=== PATIENT | female | born 1955 | race Caucasian/White ===

== ENCOUNTER 2018-05-21 11:54 | Emergency (ER) | payer MEDICARE, BC ==
[~2018-05-21 11:54] MED LIST: ISOVUE-370 76%-LOCM 1 ML ONE
[2018-05-21] MEDS ORDERED: Ondansetron ODT 8 MG TAB ONE (12:18)
[2018-05-21 12:25] LABS: #Eosinphils 0.2 thou/uL (0.0-0.7); #Monocytes 0.9 thou/uL (0.11-0.59); #Neutrophils 11.4 thou/uL (1.40-6.50); %Basophils 0.1 % (0.0-1.0); %Eosinophils 1.3 % (0.0-10.0); %Lymphocytes 13.6 % (21.0-51.0); %Monocytes 6.3 % (0.0-10.0); %Neutrophils 78.7 % (42.0-75.0); Hemoglobin 13.3 g/dL (12.0-16.0); Mean Corpuscular HGB CONC 32.5 g/dL (32.0-36.0); Mean Corpuscular Hemoglobin 27.2 pg (27.0-31.0); Mean Corpuscular Volume 83.9 fL (78.0-98.0); Mean Platelet Volume 7.1 fL (7.4-10.4); Platelet Count 274 thou/uL (130-400); RBC Distribution Width 12.9 % (11.5-14.5); Red Blood Cell (RBC) Count 4.89 mill/uL (4.20-5.40); White Blood Cell (WBC) Count 14.5 thou/uL (4.8-10.8)
[2018-05-21 12:49] LABS: ALT (SGPT) 14 U/L (8-55); AST (SGOT) 12 U/L (5-34); Albumin 4.2 g/dL (3.4-4.8); Alkaline Phosphatase 82 U/L (40-150); Anion Gap 15 mmol/L (10-20); BUN (Urea Nitrogen) 14 mg/dL (9.8-20.1); Bilirubin, Total 0.7 mg/dL (0.2-1.2); Calc. Creatinine Clearance 0 mL/min (70-130); Calcium 10.1 mg/dL (7.8-10.44); Carbon Dioxide 25 mmol/L (23-31); Chloride 102 mmol/L (98-107); Estimated GFR-MDRD 86; Globulin 3.1 g/dL (2.4-3.5); Glucose 106 mg/dL (80-115); Lipase 29 U/L (8-78); Potassium 3.6 mmol/L (3.5-5.1); Protein, Total 7.3 g/dL (6.0-8.3); Sodium 138 mmol/L (136-145)
[2018-05-21 13:32] LABS: Bilirubin Negative (Negative); Blood, Urine Trace (Negative); Clarity CLEAR (Clear); Glucose, Urine (Dipstick) Negative (Negative); Leukocyte Negative (Negative); Nitrite Negative (Negative); Protein, Urine (Dipstick) Negative (Neg-Trace); Urobilinogen 0.2 mg/dL (0.2-1.0)
[2018-05-21 13:37] LABS: Bacteria/HPF None Seen HPF (None Seen); Hyaline Casts/LPF 0-3 HYALINE CAST LPF (0-3 Hyaline); Pathc Cast-AUWi Flag 0.14 (0-2.49); RBC/HPF 0-3 HPF (0-3); Squamous Epithelial 0-3 HPF (0-3); WBC/HPF 0-3 HPF (0-3)
[2018-05-21] MEDS ORDERED: metroNIDAZOLE 250 MG TAB ONE (14:00)
--- NOTE | 2018-05-21 14:07 | CT ---
CT ABDOMEN AND PELVIS WITH IV CONTRAST: HISTORY: Left lower quadrant pain. FINDINGS: Lung bases are clear. Lobular cysts are apparent within the left liver lobe. Spleen, kidneys, adren al glands, and pancreas are within normal limits. Scattered nonspecific lymph nodes. Urinary bladde r is decompressed. Calcifications in the uterus have the appearance of fibroids. Degenerative finn es lumbar spine. Lack of oral contrast limits evaluation of the bowel. No evidence of obstruction. Scattered diverti cula arise from the colon. There is subtle circumferential wall thickening involving the upper sigmo id colon with stranding in the adjacent fat in the region of diverticula. No extraluminal fluid jessy ection are apparent, with a small amount of fluid noted at the left adnexa. The stranding from the b owel also involves the left adnexa, including the fallopian tube. IMPRESSION: 1. Left lower quadrant inflammation involves both the thickened sigmoid colon and the left adnexa. Noncomplicated diverticulitis is the favored etiology, rather than pelvic inflammatory disease. 2. Atherosclerosis. 3. Calcified uterine fibroids. POS: [facility]
== END 2018-05-21 14:11 | disposition home or self-care (01) ==
LOC: ERS 11:54
DX: K57.32 Diverticulitis of large intestine without perforation or abscess without bleeding (principal); E03.9 Hypothyroidism, unspecified; I10 Essential (primary) hypertension; Z79.899 Other long term (current) drug therapy
CPT/HCPCS: 74177; 80053; 81003; 81015; 83690; 85025; 93005; 96361; 96374; J2270

== ENCOUNTER 2018-10-14 19:30 | Outpatient (CLI) | payer MEDICARE, BC | END 2018-10-14 19:31 | disposition home or self-care (01) | LOC: SLEEPLAB 19:30 | DX: G47.33 Obstructive sleep apnea (adult) (pediatric) (principal); R53.83 Other fatigue; I10 Essential (primary) hypertension; E66.9 Obesity, unspecified; Z68.36 Body mass index [BMI] 36.0-36.9, adult | CPT/HCPCS: 95811 ==

== ENCOUNTER 2019-02-27 10:12 | Emergency (ER) | payer MEDICARE, BC ==
[2019-02-27 11:09] LABS: #Eosinphils 0.2 thou/uL (0.0-0.7); #Lymphocytes 2.3 thou/uL (1.20-3.40); #Monocytes 0.8 thou/uL (0.11-0.59); #Neutrophils 5.8 thou/uL (1.40-6.50); %Basophils 0.1 % (0.0-1.0); %Eosinophils 2.6 % (0.0-10.0); %Lymphocytes 25.4 % (21.0-51.0); %Monocytes 8.4 % (0.0-10.0); %Neutrophils 63.6 % (42.0-75.0); Hemoglobin 12.2 g/dL (12.0-16.0); Mean Corpuscular HGB CONC 31.7 g/dL (32.0-36.0); Mean Corpuscular Hemoglobin 26.7 pg (27.0-31.0); Mean Corpuscular Volume 84.2 fL (78.0-98.0); Mean Platelet Volume 7.6 fL (7.4-10.4); Platelet Count 255 thou/uL (130-400); RBC Distribution Width 12.8 % (11.5-14.5); Red Blood Cell (RBC) Count 4.56 mill/uL (4.20-5.40); White Blood Cell (WBC) Count 9.2 thou/uL (4.8-10.8)
[2019-02-27 11:35] LABS: ALT (SGPT) 17 U/L (8-55); AST (SGOT) 13 U/L (5-34); Albumin 4.1 g/dL (3.4-4.8); Alkaline Phosphatase 92 U/L (40-150); Anion Gap 15 mmol/L (10-20); BUN (Urea Nitrogen) 14 mg/dL (9.8-20.1); Bilirubin, Total 0.6 mg/dL (0.2-1.2); Calc. Creatinine Clearance 0 mL/min (70-130); Calcium 9.4 mg/dL (7.8-10.44); Carbon Dioxide 24 mmol/L (23-31); Chloride 106 mmol/L (98-107); Estimated GFR-MDRD 76; Globulin 2.7 g/dL (2.4-3.5); Glucose 87 mg/dL (80-115); Lipase 31 U/L (8-78); Potassium 3.9 mmol/L (3.5-5.1); Protein, Total 6.8 g/dL (6.0-8.3); Sodium 141 mmol/L (136-145)
[2019-02-27 12:01] LABS: Bilirubin Negative (Negative); Blood, Urine Negative (Negative); Clarity CLEAR (Clear); Glucose, Urine (Dipstick) Negative (Negative); Leukocyte Negative (Negative); Nitrite Negative (Negative); Protein, Urine (Dipstick) Negative (Neg-Trace); Specific Gravity, Urine 1.007 (1.002-1.036); Urobilinogen 0.2 mg/dL (0.2-1.0)
--- NOTE | 2019-02-27 12:13 | CT ---
CT of abdomen and pelvis: 02/27/2019 COMPARISON: 05/21/2018 HISTORY: Left lower quadrant pain TECHNIQUE: Axial CT imaging obtained at 5 mm intervals from the lung bases through the pubic symphysi s with IV contrast. Coronal reformatted imaging obtained. FINDINGS: The imaged lung bases are unremarkable. No free intraperitoneal air. There is a stable cyst within the anterior aspect of the left lobe of the liver measuring 4.9 cm. A s econd smaller hypodense stable lesion suggesting an additional cyst noted in the anterior aspect of t he left lobe of liver measuring 1.2 cm. The spleen, gallbladder, pancreas, adrenal glands, and kidneys are unremarkable. There is multifocal diverticulosis of the descending colon and the sigmoid colon. There is a focal ar ea of pericolonic inflammatory change involving the sigmoid colon with associated colonic wall thicke jordan, evidence of acute sigmoid diverticulitis. This involves a segment of the sigmoid colon within t he left lower quadrant measuring approximately 5 cm in length. No associated abscess. There is a suture line at the level of the cecal tip suggesting prior appendectomy. There is a small sliding-type bowel hernia. There is scattered atherosclerotic calcification of the a bdominal aorta and its branches. No lymphadenopathy is seen in the pelvis, mesentery, or retroperiton eum. Calcified lesion within the uterus noted, evidence of stable uterine fibroid. Review of the osseous structures demonstrates no worrisome lytic or blastic lesion. Multilevel lower lumbar spine facet hypertrophic change seen. IMPRESSION: Findings most consistent with sigmoid diverticulitis. These findings are similar when com pared to the 05/21/2018 examination. Recommend direct visualization following treatment to exclude an u nderlying lesion within the colon.
== END 2019-02-27 12:26 | disposition home or self-care (01) ==
LOC: ERS 10:12
DX: K57.32 Diverticulitis of large intestine without perforation or abscess without bleeding (principal); E03.9 Hypothyroidism, unspecified; I10 Essential (primary) hypertension
CPT/HCPCS: 36415; 74177; 80053; 81003; 83690; 85025

== ENCOUNTER 2019-10-22 12:18 | Outpatient (CLI) | payer MEDICARE, BC ==
--- NOTE | 2019-11-14 09:28 | MMO ---
Bilateral MAMMO Bilat Screen [facility]. CLINICAL HISTORY: Patient is 64 years old and is seen for screening. The patient has the following family history of breast cancer: mother, at age 62. The patient has no personal history of cancer. VIEWS: The views performed were: bilateral craniocaudal with tomosynthesis and bilateral mediolateral oblique with tomosynthesis. FILMS COMPARED: The present examination has been compared to prior imaging studies performed at [facility] on 02/17/2015, 02/22/2016 and 08/30/2018. This study has been interpreted with the assistance of computer-aided detection. MAMMOGRAM FINDINGS: There are scattered fibroglandular densities. There are no suspicious masses, suspicious calcifications, or new areas of architectural distortion. IMPRESSION: THERE IS NO MAMMOGRAPHIC EVIDENCE OF MALIGNANCY. A ROUTINE FOLLOW-UP MAMMOGRAM IN 1 YEAR IS RECOMMENDED. THE RESULTS OF THIS EXAM WERE SENT TO THE PATIENT. ACR BI-RADS Category 1 - Negative MAMMOGRAPHY NOTE: 1. A negative mammogram report should not delay a biopsy if a dominant of clinically suspicious mass is present. 2. Approximately 10% to 15% of breast cancers are not detected by mammography. 3. Adenosis and dense breasts may obscure an underlying neoplasm. Reported by: ANGELA VEGA MD Electonically Signed: [id number]
== END 2019-10-22 12:19 | disposition home or self-care (01) ==
LOC: BICMAMMO 12:18
PROVIDERS: ATTEND Family Medicine
DX: Z12.31 Encounter for screening mammogram for malignant neoplasm of breast (principal); Z80.3 Family history of malignant neoplasm of breast
CPT/HCPCS: 77063; 77067

== ENCOUNTER 2019-12-11 12:13 | Outpatient (CLI) | payer MEDICARE, OTHER ==
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
== END 2019-12-11 12:14 | disposition home or self-care (01) ==
LOC: BICRAD 12:13
PROVIDERS: ATTEND Family Medicine
DX: R20.0 Anesthesia of skin (principal); M47.812 Spondylosis without myelopathy or radiculopathy, cervical region; M43.12 Spondylolisthesis, cervical region
CPT/HCPCS: 36415; 72040; 80053; 80061; 84443; 84550

== ENCOUNTER 2020-01-01 12:48 | Outpatient (CLI) | payer MEDICARE, OTHER ==
--- NOTE | 2020-01-01 15:42 | MRI ---
CERVICAL SPINE MRI WITHOUT CONTRAST: DATE: 01/01/2020. COMPARISON: None. HISTORY: Bilateral hand numbness, neck pain. TECHNIQUE: Multiplanar, multisequence MR imaging of the cervical spine without contrast. FINDINGS: Sagittal STIR imaging demonstrates no focal area of osseous marrow edema. Craniocervical and cervicothoracic junction appears intact. There is minimal retrolisthesis at C4-5 measuring in the 2-3 mm range. C2-3: No significant central canal or neural foraminal stenosis. C3-4: Mild disk space narrowing. Mild bilateral facet hypertrophy. No significant central canal or neural foraminal stenosis. C4-5: There is disk space narrowing with disk desiccation and a small central/left paracentral disk protrusion. This causes a mild degree of central canal stenosis. There is mild bilateral neural for aminal stenosis, left greater than right, on the basis of facet and uncovertebral osteophyte formatio n. C5-6: There is disk space narrowing and disk desiccation with disk bulge and a small central/left pa racentral disk protrusion. There is associated mild central canal stenosis. Mild left-sided neural foraminal stenosis on the basis of facet and uncovertebral osteophyte formation. No significant righ t neural foraminal stenosis. C6-7: There is disk space narrowing with disk desiccation and disk bulge partially effacing the vent ral thecal sac with a mild degree of central canal stenosis. Bilateral facet and uncovertebral osteo phyte formation noted with mild bilateral neural foraminal stenosis, left greater than right. C7-T1: No significant central canal or neural foraminal stenosis. No focal area of abnormal signal intensity identified within the cervical cord. IMPRESSION: Cervical spine degenerative change as detailed above. POS: [facility]
== END 2020-01-01 12:49 | disposition home or self-care (01) ==
LOC: BICMRI 12:48
PROVIDERS: ATTEND Family Medicine
DX: R20.0 Anesthesia of skin (principal); M47.812 Spondylosis without myelopathy or radiculopathy, cervical region
CPT/HCPCS: 72141

== ENCOUNTER 2021-03-09 09:55 | Outpatient (CLI) | payer MEDICARE, OTHER | END 2021-03-09 09:56 | disposition home or self-care (01) | LOC: BICMAMMO 09:55 | PROVIDERS: ATTEND Family Medicine | DX: Z12.31 Encounter for screening mammogram for malignant neoplasm of breast (principal); M85.89 Other specified disorders of bone density and structure, multiple sites; Z80.3 Family history of malignant neoplasm of breast | CPT/HCPCS: 77063; 77067; 77080 ==

== ENCOUNTER 2022-03-14 11:10 | Outpatient (CLI) | payer MEDICARE, OTHER | END 2022-03-14 11:11 | disposition home or self-care (01) | LOC: BICMAMMO 11:10 | PROVIDERS: ATTEND Family Medicine | DX: Z12.31 Encounter for screening mammogram for malignant neoplasm of breast (principal); Z80.3 Family history of malignant neoplasm of breast | CPT/HCPCS: 77063; 77067 ==

== ENCOUNTER 2022-07-26 10:07 | Outpatient (CLI) | payer MEDICARE, OTHER ==
[2022-07-26] MEDS ORDERED: Iopamidol-370 76% 500 ML 1 ML ONE (13:32)
== END 2022-07-26 10:08 | disposition home or self-care (01) ==
LOC: BICCT 10:07
PROVIDERS: ATTEND Nurse Practitioner Family
DX: R68.84 Jaw pain (principal); R51.9 Headache, unspecified; G89.29 Other chronic pain
CPT/HCPCS: 70487; Q9967